=== PATIENT | male | born 1965 ===

== ENCOUNTER 2020-03-13 06:22 | Day surgery (SDC) | payer BC ==
[~2020-03-13] VITALS: Ht 182.9 cm; Wt 66.0 kg
[~2020-03-13 06:22] MED LIST: ADVIL PO; Aspir 8181 MG PO; HYDACE5325 PO; LORA.5 PO; METO25ER PO; MONT10T PO; NAPR500 PO; NASONEX17 G1; TRAZ100 PO; UBID10 PO; ZYRTEC10 M2 PO; [UNRECOGNIZED DRUG - OTHER] PO
[2020-03-13] MEDS ORDERED: ROSU5 PO (07:07)
[2020-03-13] MEDS ORDERED: PRAVASTATIN SOD10 MG PO (08:22)
--- NOTE | 2020-03-13 09:15 | NUR ---
PT DRANK SIPS OF WATER WITH NO ASPIRATION. DISCHARGE INSTRUCTIONS REVIEWED AND ALL QUESTIONS ANSWERED. 22 G IV DISCONTINUED FROM RIGHT AC WITH INTACT CANNULA. PT ESCORTED OUT VIA WHEELCHAIR ESCORT.
== END 2020-03-13 12:00 | disposition home or self-care (01) ==
LOC: MHTC 06:22
DX: I08.1 Rheumatic disorders of both mitral and tricuspid valves (principal); I47.1 Supraventricular tachycardia; I48.0 Paroxysmal atrial fibrillation; I70.0 Atherosclerosis of aorta; I37.1 Nonrheumatic pulmonary valve insufficiency; Z20.828 Contact with and (suspected) exposure to other viral communicable diseases; I71.4 Abdominal aortic aneurysm, without rupture; Z98.890 Other specified postprocedural states; Z79.82 Long term (current) use of aspirin; Z79.899 Other long term (current) drug therapy; Z79.02 Long term (current) use of antithrombotics/antiplatelets; Z88.8 Allergy status to other drugs, medicaments and biological substances
CPT/HCPCS: 93312; 93325; J2704; J7030

== ENCOUNTER → 2024-10-04 | Outpatient (CLI) | payer BC ==
[~2024-10-04] MED LIST changes: +PRAVASTATIN SOD10 MG PO; +ROSU5 PO
[2024-10-06 11:57] LABS: Stool Occult Blood Guaiac 1 Neg (Neg)
== END | disposition home or self-care (01) ==
LOC: LAB SHORT 17:33 → LAB 17:33
PROVIDERS: Nurse Practitioner Family
DX: R19.5 Other fecal abnormalities (principal)
CPT/HCPCS: 82270

== ENCOUNTER → 2024-11-09 | Outpatient (CLI) | payer BC ==
[2024-11-11 08:46] LABS: Stool Occult Blood Guaiac 1 Neg (Neg)
== END ==
LOC: LAB 21:10 → LAB SHORT 21:10
PROVIDERS: Nurse Practitioner Family
DX: R19.5 Other fecal abnormalities (principal)
CPT/HCPCS: 82270